=== PATIENT | female | born 1990 | race American Indian/Alaskan Native ===

== ENCOUNTER 2018-09-03 22:58 | Emergency (ER) | payer SELFPAY ==
[2018-09-03 23:18] VITALS: BP 121/64
--- NOTE | 2018-09-05 17:02 | Emergency Department Report ---
Blank Doc - Documentation Documentation: Patient is left without treatment and without being seen
== END 2018-09-04 02:48 | disposition left against medical advice (07) ==
LOC: ED 22:58
DX: G43.909 Migraine, unspecified, not intractable, without status migrainosus (principal); Z53.21 Procedure and treatment not carried out due to patient leaving prior to being seen by health care provider